=== PATIENT | male | born 1955 | race Caucasian/White ===

== ENCOUNTER 2020-09-03 17:32 | Emergency (ER) | payer OTHER, MEDICARE ==
[~2020-09-03] VITALS: Ht 177.8 cm; Wt 136.1 kg
[~2020-09-03 17:32] MED LIST: ASPI325EC PO; ASPI81CH PO; CEPH500 PO; CHOL10002 PO; DEXT10ER; DEXT10ER PO; DOCU100 PO; ESCI20 PO; FERR325 PO; FISH1000 PO; HYDACE10B PO; IBUP800 PO; LEVSOD100 PO; LEVSOD50 PO; LORA10 PO; METF500 PO; METO25 PO; NITR.6SL SL; Omeprazole20 M1 PO; PRAV20 PO; SULTRIDS PO; Tambocor100 MG PO; WARF4 PO; XARELTO20 MG PO
== END 2020-09-03 19:50 | disposition home or self-care (01) ==
LOC: ER 17:32
DX: S80.01XA Contusion of right knee, initial encounter (principal); I48.91 Unspecified atrial fibrillation; E03.9 Hypothyroidism, unspecified; I10 Essential (primary) hypertension; Z79.899 Other long term (current) drug therapy; Z79.01 Long term (current) use of anticoagulants; Z88.8 Allergy status to other drugs, medicaments and biological substances; Z79.82 Long term (current) use of aspirin; W01.198A Fall on same level from slipping, tripping and stumbling with subsequent striking against other object, initial encounter
CPT/HCPCS: 73562-RT; 99283-25

== ENCOUNTER 2022-01-04 06:38 | Day surgery (SDC) | payer MEDICARE ==
[~2022-01-04] VITALS: Ht 177.8 cm; Wt 132.0 kg
[~2022-01-04 06:38] MED LIST changes: +AMLO5 PO; -DEXT10ER; +ELIQUIS5 M2 PO; +ESCI10 PO; +LEVOTHYROXINE75 MC8 PO; +TADA10TA
[2022-01-04] MEDS ORDERED: TOPROL XL25 MG PO (07:07)
[2022-01-04] MEDS ORDERED: METO25ER PO (07:08)
--- NOTE | 2022-01-04 08:20 | NUR ---
PT VERABLIZES UNDERSTANDING WRITTEN AND VERBAL INSTRUCTIONS. VSS. NADN. PT IV DC'D. CATH INTACT. PRESSURE DSG APPLIED. PT DC TO HOME VIA WC BY DTR.
== END 2022-01-04 22:42 | disposition home or self-care (01) ==
LOC: ORSCMMR 06:38 → MHTC 06:38 → ORSCMMR 06:40 → ORD 07:00 → ORSCMMR 07:00
PROC: 5A2204Z Restoration of Cardiac Rhythm, Single (ICD-10-PCS; principal; 2022-01-04)
DX: I48.0 Paroxysmal atrial fibrillation (principal); I10 Essential (primary) hypertension; E03.9 Hypothyroidism, unspecified; E78.5 Hyperlipidemia, unspecified; E66.2 Morbid (severe) obesity with alveolar hypoventilation; Z79.899 Other long term (current) drug therapy; Z79.01 Long term (current) use of anticoagulants; Z79.890 Hormone replacement therapy; Z88.1 Allergy status to other antibiotic agents; Z88.8 Allergy status to other drugs, medicaments and biological substances; Z68.41 Body mass index [BMI] 40.0-44.9, adult
CPT/HCPCS: 92960; 93005; 93010; J2704; J7030

== ENCOUNTER 2022-12-14 04:33 | Emergency (ER) | payer MEDICARE ==
[~2022-12-14] VITALS: Ht 180.3 cm; Wt 129.3 kg
[~2022-12-14 04:33] MED LIST changes: +METO25ER PO; +TOPROL XL25 MG PO
[2022-12-14 05:14] LABS: BASOPHILS ABSOLUTE AUTO 0.06 K/mm3 (0.00-0.23); BASOPHILS PERCENT AUTO 1 % (0-2); EOSINOPHILS PERCENT AUTO 2 % (0-6); Hematocrit 41.1 % (37.0-53.0); Hemoglobin 13.3 g/dL (13.5-17.5); IMMATURE GRAN ABSOLUTE AUTO 0.02 K/mm3 (0.00-0.10); IMMATURE GRAN PERCENT AUTO 0 % (0-1); LYMPHOCYTES ABSOLUTE AUTO 1.15 K/mm3 (0.84-5.20); LYMPHOCYTES PERCENT AUTO 17 % (21-46); MONOCYTES ABSOLUTE AUTO 0.56 K/mm3 (0.16-1.47); MONOCYTES PERCENT AUTO 8 % (4-13); Mean Corpuscular HGB 27.5 pg (26.0-34.0); Mean Corpuscular HGB Conc 32.4 g/dL (31.5-36.5); Mean Corpuscular Volume 85 fL (80-100); Mean Platelet Volume 9.2 fL (9.1-12.4); NEUTROPHILS ABSOLUTE AUTO 4.99 K/mm3 (1.96-9.15); NEUTROPHILS PERCENT AUTO 73 % (41-73); Platelet Count 209 K/mm3 (150-400); RDW Standard Deviation 40.2 fL (35.1-46.3); Red Blood Cell Count 4.84 M/mm3 (4.30-5.90); White Blood Cell Count 6.88 K/mm3 (4.00-11.30)
[2022-12-14 05:27] LABS: Albumin, Blood 3.4 g/dL (3.4-5.0); Albumin/Globulin Ratio 1.1 (0.8-1.8); Bilirubin, Total 0.5 mg/dL (0.1-1.0); Bun/Creatinine Ratio 27.7 (12.0-20.0); Calcium, Blood 8.7 mg/dL (8.5-10.1); Creatinine, Blood 1.12 mg/dL (0.60-1.20); Globulin, Blood 3.2 g/dL (2.2-4.0); Magnesium, Blood 2.7 mg/dL (1.6-2.4); Potassium, Blood 4.3 mmol/L (3.5-5.5); Total Protein, Blood 6.6 g/dL (6.4-8.2)
[2022-12-14 08:00] VITALS: BP 110/55
== END 2022-12-14 08:50 | disposition home or self-care (01) ==
LOC: ER 04:33
PROVIDERS: Emergency Medicine
DX: R55 Syncope and collapse (principal); R06.02 Shortness of breath; R00.1 Bradycardia, unspecified; R42 Dizziness and giddiness; R61 Generalized hyperhidrosis; I10 Essential (primary) hypertension; E03.9 Hypothyroidism, unspecified; I48.91 Unspecified atrial fibrillation; Z79.01 Long term (current) use of anticoagulants; Z79.899 Other long term (current) drug therapy
CPT/HCPCS: 71045; 80053; 83735; 83880; 84484; 85025; 93005; 93010; 99284-25; J7030

== ENCOUNTER 2023-05-18 14:22 | Emergency (ER) | payer OTHER, MEDICARE ==
[~2023-05-18] VITALS: Ht 177.8 cm; Wt 127.0 kg
[2023-05-18 14:29] VITALS: BP 152/105
[2023-05-18] MEDS ORDERED: AMOCLA875 PO (15:28)
== END 2023-05-18 17:01 | disposition home or self-care (01) ==
LOC: ER 14:22
DX: S62.634B Displaced fracture of distal phalanx of right ring finger, initial encounter for open fracture (principal); W54.0XXA Bitten by dog, initial encounter; Z88.8 Allergy status to other drugs, medicaments and biological substances; Z79.899 Other long term (current) drug therapy; I48.91 Unspecified atrial fibrillation; E03.9 Hypothyroidism, unspecified; I10 Essential (primary) hypertension; E66.9 Obesity, unspecified; G47.30 Sleep apnea, unspecified
CPT/HCPCS: 12002; 73140; 90471; 90714; 99283-25; A9270

== ENCOUNTER → 2024-02-13 | Outpatient (CLI) | payer MEDICARE ==
[~2024-02-13] MED LIST changes: +AMOCLA875 PO
[2024-02-13 15:17] LABS: BASOPHILS ABSOLUTE AUTO 0.08 K/mm3 (0.00-0.23); BASOPHILS PERCENT AUTO 1 % (0-2); EOSINOPHILS ABSOLUTE AUTO 0.11 K/mm3 (0.00-0.68); EOSINOPHILS PERCENT AUTO 2 % (0-6); Hematocrit 43.7 % (37.0-53.0); Hemoglobin 14.1 g/dL (13.5-17.5); IMMATURE GRAN ABSOLUTE AUTO 0.04 K/mm3 (0.00-0.10); IMMATURE GRAN PERCENT AUTO 1 % (0-1); LYMPHOCYTES ABSOLUTE AUTO 1.28 K/mm3 (0.84-5.20); LYMPHOCYTES PERCENT AUTO 22 % (21-46); MONOCYTES ABSOLUTE AUTO 0.44 K/mm3 (0.16-1.47); MONOCYTES PERCENT AUTO 8 % (4-13); Mean Corpuscular HGB 27.4 pg (26.0-34.0); Mean Corpuscular HGB Conc 32.3 g/dL (31.5-36.5); Mean Corpuscular Volume 85 fL (80-100); Mean Platelet Volume 9.8 fL (9.1-12.4); NEUTROPHILS ABSOLUTE AUTO 3.86 K/mm3 (1.96-9.15); NEUTROPHILS PERCENT AUTO 66 % (41-73); Platelet Count 222 K/mm3 (150-400); RDW Coefficient Variation 12.7 % (11.7-14.2); RDW Standard Deviation 39.5 fL (35.1-46.3); Red Blood Cell Count 5.15 M/mm3 (4.30-5.90); White Blood Cell Count 5.81 K/mm3 (4.00-11.30)
[2024-02-13 19:04] LABS: Prostate Specific Antigen 0.297 ng/mL (0.000-4.000); Uric Acid, Blood 5.5 mg/dL (3.5-7.2)
[2024-02-13 19:10] LABS: Alanine Aminotransfer (ALT/SGP 38 U/L (12-78); Albumin, Blood 3.5 g/dL (3.4-5.0); Albumin/Globulin Ratio 1.1 (0.8-1.8); Alk Phos 95 U/L (50-136); Anion Gap 9 mmol/L (3-11); Aspartate Aminotrans (AST/SGOT 24 U/L (12-37); Bilirubin, Total 0.4 mg/dL (0.1-1.0); Blood Urea Nitrogen 17 mg/dL (8-24); Bun/Creatinine Ratio 18.9 (12.0-20.0); CO2, Blood 27 mmol/L (21-32); Calcium, Blood 8.4 mg/dL (8.5-10.1); Chloride, Blood 107 mmol/L (98-108); Globulin, Blood 3.2 g/dL (2.2-4.0); Glomerular Filtration Rate 94 (60-); Glucose, Blood 103 mg/dL (70-99); Sodium, Blood 139 mmol/L (136-145); Total Protein, Blood 6.7 g/dL (6.4-8.2)
== END ==
LOC: LAB SHORT 09:55 → LAB 09:55
PROVIDERS: Physician Assistant
DX: R60.0 Localized edema (principal); M79.89 Other specified soft tissue disorders; Z12.5 Encounter for screening for malignant neoplasm of prostate; Z79.899 Other long term (current) drug therapy
CPT/HCPCS: 80053; 82306; 83036; 83880; 84443; 84550; 85025; G0103

== ENCOUNTER 2024-09-09 07:26 | Day surgery (SDC) | payer OTHER | END 2024-09-09 23:00 | disposition home or self-care (01) | LOC: CT 07:26 | DX: R94.39 Abnormal result of other cardiovascular function study (principal); R00.1 Bradycardia, unspecified; R06.09 Other forms of dyspnea; I10 Essential (primary) hypertension; E78.5 Hyperlipidemia, unspecified; I48.0 Paroxysmal atrial fibrillation; I77.810 Thoracic aortic ectasia; E03.9 Hypothyroidism, unspecified; Z79.899 Other long term (current) drug therapy; Z79.890 Hormone replacement therapy; Z79.01 Long term (current) use of anticoagulants; Z88.8 Allergy status to other drugs, medicaments and biological substances | CPT/HCPCS: 75574; Q9967 ==

== ENCOUNTER 2025-02-18 06:17 | Day surgery (SDC) | payer OTHER ==
[~2025-02-18] VITALS: Ht 177.8 cm; Wt 123.0 kg
[2025-02-18] VITALS (8 sets, daily range): BP systolic 102–130; BP diastolic 62–87
[~2025-02-18 06:17] MED LIST changes: +ATOR20 PO; +Budeprion Xl300 MG PO; +SILD25T PO; +TAMS.4ER PO
[2025-02-18] MEDS ORDERED: NS 1,000 ML IV ONE (06:33)
--- NOTE | 2025-02-18 07:05 | NUR ---
ASSUMED CARE FROM ANESTHESIA. PT AWAKE AND VERBALIZING WELL. SB 54 BPM POST CARDIOVERSION.
--- NOTE | 2025-02-18 07:17 | NUR ---
PT VERBALIZED UNDERSTANDING OF WRITTEN AND VERBAL D/C INST. IV REMOVED. SR 60 BPM.
== END 2025-02-18 23:00 | disposition home or self-care (01) ==
LOC: MHTC 06:17 → ORD 07:00 → ORSCSDS 07:00 → MHTC 23:00
DX: I48.19 Other persistent atrial fibrillation (principal); I48.0 Paroxysmal atrial fibrillation; I25.10 Atherosclerotic heart disease of native coronary artery without angina pectoris; I44.0 Atrioventricular block, first degree; I10 Essential (primary) hypertension; I47.10 Supraventricular tachycardia, unspecified; I77.810 Thoracic aortic ectasia; E78.5 Hyperlipidemia, unspecified; E03.9 Hypothyroidism, unspecified; G47.33 Obstructive sleep apnea (adult) (pediatric); F98.8 Other specified behavioral and emotional disorders with onset usually occurring in childhood and adolescence; Z79.01 Long term (current) use of anticoagulants; Z79.890 Hormone replacement therapy; Z79.899 Other long term (current) drug therapy; Z88.1 Allergy status to other antibiotic agents; Z88.8 Allergy status to other drugs, medicaments and biological substances
CPT/HCPCS: 92960; 93005; 93010; J2704; J7030